=== PATIENT | male | born 1985 | race Caucasian/White ===

== ENCOUNTER 2018-10-12 23:20 | Emergency (ER) | payer OTHER ==
[2018-10-13] MEDS ORDERED: Morphine 4 MG/ML VIAL (1 ml) 4 MG/ML VIAL IV ONE (02:20)
[2018-10-13] MEDS ORDERED: NS 0.9% 1000 ML** 1,000 ML IV ONE (02:22)
[2018-10-13] MEDS ORDERED: Metoclopramide IV* 5 MG/ML 2 ML VIAL IV SLOW PU ONE (02:22)
[2018-10-13 02:41] LABS: ABS Eosinophils 0.2 10^3/ul (0-0.6); ABS Monocytes 0.5 10^3/ul (0-0.8); Eosinophil % 2.2 %; Hematocrit 35 % (42-52); Hemoglobin 11.8 g/dL (14.0-18.0); Lymphocyte % 23.2 %; Mean Corpuscular HGB Conc 34 g/dL (31-36); Mean Corpuscular Hemoglobin 27 pg (27-31); Mean Corpuscular Volume 79 fL (80-94); Mean Platelet Volume 8.1 fL (7.4-10.4); Nucleated Red Blood Cells % 0.1; Platelet Count 202 10^3/uL (150-450); Red Blood Count 4.42 10^6 /uL (4.18-5.48); Red Cell Distribution Width 17 % (10-15); White Blood Count 8.8 10^3/uL (3.5-10.8)
[2018-10-13 02:48] LABS: Activated Partial Thrombo Time 30.9 seconds (26.0-38.0); INR 0.99 (0.82-1.09)
[2018-10-13 02:58] LABS: Albumin 4.5 g/dL (3.2-5.2); Albumin/Globulin Ratio 1.6 (1-3); BUN/Creatinine Ratio 17.4 (8-20); C Reactive Protein 4.22 mg/L (<8.01); Calcium 9.3 mg/dL (8.6-10.3); EGFR African American 123.2 (>60); EGFR Non-African American 101.8 (>60); Globulin 2.8 g/dL (2-4); Potassium 4.1 mmol/L (3.5-5.0); Total Bilirubin 0.6 mg/dL (0.2-1.0); Total Protein 7.3 g/dL (6.4-8.9)
[2018-10-13] MEDS ORDERED: Iohexol 300* (CONTRAST) 10 ML SDV IV ONE (03:23)
[2018-10-13 05:18] LABS: Urine Appearance Clear; Urine Bacteria 2+ (Absent); Urine Bilirubin Negative (Negative); Urine Blood Negative (Negative); Urine Color Yellow; Urine Glucose Negative (Negative); Urine Ketones Negative (Negative); Urine Nitrite Positive (Negative); Urine Protein Negative (Negative); Urine Red Blood Cell Trace(0-2/hpf) (Absent); Urine Specific Gravity 1.057 (1.010-1.030); Urine Squamous Epithelial Cell Present (Absent); Urine Urobilinogen Negative (Negative); Urine White Blood Cell 1+(6-10/hpf) (Absent)
[2018-10-13] MEDS ORDERED: Levofloxacin TAB* 500 MG PO ONE (05:39)
--- NOTE | 2018-10-13 06:26 | ED ---
Abdominal Pain/Male - HPI Summary HPI Summary: This patient is a 33 year old M presenting to [facility] with a chief complaint of constant lower ABD pain since 2 days ago. Pt denies hx of ABD surgeries. He notes that his last BM was today and had a medium amount of blood. The patient rates the pain 7/10 in severity. Symptoms aggravated by nothing. Symptoms alleviated by nothing. - History of Current Complaint Chief Complaint: EDAbdPain Stated Complaint: ABD PAINS PER PT Time Seen by Provider: 10/13/18 02:08 Hx Obtained From: Patient Onset/Duration: Sudden Onset, Lasting Days - 2 Timing: Constant, Lasting Days - 2 Severity Currently: Severe Pain Intensity: 7 Pain Scale Used: 0-10 Numeric Location: Other - lower ABD Radiates: No Aggravating Factor(s): Nothing Alleviating Factor(s): Nothing Associated Signs And Symptoms: Positive: Blood in Stool, Other - lower ABD pain - Allergies/Home Medications Allergies/Adverse Reactions: Allergies Allergy/AdvReac Type Severity Reaction Status Date / Time No Known Allergies Allergy Verified 10/12/18 23:25 Home Medications: Home Medications Cyclobenzaprine TAB* [Flexeril 10 MG TAB*] 10 mg PO BID PRN 10/13/18 [History Confirmed 10/13/18] Gabapentin CAP(*) [Neurontin 300 CAP(*)] 300 mg PO TID 10/13/18 [History Confirmed 10/13/18] PMH/Surg Hx/FS Hx/Imm Hx Previously Healthy: No Endocrine/Hematology History: Denies: Hx Diabetes Cardiovascular History: Denies: Hx Hypertension History: Denies: Hx Renal Disease EENT History: Denies: Hx Deafness - Surgical History Surgical History: Unable to Obtain/Confirm - Immunization History Immunizations Up to Date: Yes Infectious Disease History: No Infectious Disease History: Denies: Traveled Outside the US in Last 30 Days - Family History Known Family History: Positive: None - Social History Alcohol Use: Weekly Hx Substance Use: Yes Substance Use Type: Reports: Marijuana Hx Tobacco Use: Yes Smoking Status (MU): Heavy Every Day Tobacco Smoker Review of Systems Negative: Fever Gastrointestinal: Other - positive - bloody stool Positive: Abdominal Pain - lower All Other Systems Reviewed And Are Negative: Yes Physical Exam - Summary Physical Exam Summary: VITAL SIGNS: Reviewed. GENERAL: Patient is a well-developed and nourished MALE who is lying comfortable in the stretcher. Patient is not in any acute respiratory distress. HEAD AND FACE: No signs of trauma. No ecchymosis, hematomas or skull depressions. No sinus tenderness. EYES: PERRLA, EOMI x 2, No injected conjunctiva, no nystagmus. EARS: Hearing grossly intact. Ear canals and tympanic membranes are within normal limits. MOUTH: Oropharynx within normal limits. NECK: Supple, trachea is midline, no adenopathy, no JVD, no carotid bruit, no c- spine tenderness, neck with full ROM CHEST: Symmetric, no tenderness at palpation LUNGS: Clear to auscultation bilaterally. No wheezing or crackles. CVS: Regular rate and rhythm, S1 and S2 present, no murmurs or gallops appreciated. ABDOMEN: Soft, Diffuse ABD tenderness. No signs of distention. No rebound no guarding, and no masses palpated. Bowel sounds are normal. EXTREMITIES: Right BKA , FROM in all major joints, no edema, no cyanosis or clubbing. NEURO: Alert and oriented x 3. No acute neurological deficits. Speech is normal and follows commands. SKIN: Dry and warm Triage Information Reviewed: Yes Vital Signs On Initial Exam: Initial Vitals Temp Pulse Resp BP Pulse Ox 98.5 F 104 16 152/85 98 10/12/18 23:22 10/12/18 23:22 10/12/18 23:22 10/12/18 23:22 10/12/18 23:22 Vital Signs Reviewed: Yes Diagnostics - Vital Signs Vital Signs Temp Pulse Resp BP Pulse Ox 10/13/18 03:17 16 10/13/18 03:00 79 97 10/13/18 02:49 80 141/70 98 10/13/18 02:21 73 98 10/13/18 02:19 77 136/83 99 10/13/18 01:42 97.8 F 77 22 146/71 97 10/12/18 23:22 98.5 F 104 16 152/85 98 - Laboratory Lab Results: Lab Results 10/13/18 10/13/18 10/13/18 Range/Units 02:34 02:34 02:34 WBC 8.8 (3.5-10.8) 10^3/uL RBC 4.42 (4.18-5.48) 10^6 /uL Hgb 11.8 L (14.0-18.0) g/dL Hct 35 L (42-52) % MCV 79 L (80-94) fL MCH 27 (27-31) pg MCHC 34 (31-36) g/dL RDW 17 H (10-15) % Plt Count 202 (150-450) 10^3/uL MPV 8.1 (7.4-10.4) fL Neut % (Auto) 68.3 % Lymph % (Auto) 23.2 % Bertie % (Auto) 6.0 % Eos % (Auto) 2.2 % Baso % (Auto) 0.3 % Absolute Neuts (auto) 6.0 (1.5-7.7) 10^3/ul Absolute Lymphs (auto) 2.0 (1.0-4.8) 10^3/ul Absolute Monos (auto) 0.5 (0-0.8) 10^3/ul Absolute Eos (auto) 0.2 (0-0.6) 10^3/ul Absolute Basos (auto) 0.0 (0-0.2) 10^3/ul Absolute Nucleated RBC 0.0 10^3/ul Nucleated RBC % 0.1 INR (Anticoag Therapy) 0.99 (0.82-1.09) APTT 30.9 (26.0-38.0) seconds Sodium 136 (135-145) mmol/L Potassium 4.1 (3.5-5.0) mmol/L Chloride 106 (101-111) mmol/L Carbon Dioxide 23 (22-32) mmol/L Anion Gap 7 (2-11) mmol/L BUN 15 (6-24) mg/dL Creatinine 0.86 (0.67-1.17) mg/dL Est GFR ( Amer) 123.2 (>60) Est GFR (Non-Af Amer) 101.8 (>60) BUN/Creatinine Ratio 17.4 (8-20) Glucose 95 (70-100) mg/dL Calcium 9.3 (8.6-10.3) mg/dL Total Bilirubin 0.60 (0.2-1.0) mg/dL AST 24 (13-39) U/L ALT 26 (7-52) U/L Alkaline Phosphatase 68 (34-104) U/L C-Reactive Protein 4.22 (<8.01) mg/L Total Protein 7.3 (6.4-8.9) g/dL Albumin 4.5 (3.2-5.2) g/dL Globulin 2.8 (2-4) g/dL Albumin/Globulin Ratio 1.6 (1-3) Amylase 28 L (29-103) U/L Lipase 20 (11.0-82.0) U/L Urine Color Urine Appearance Urine pH (5-9) Ur Specific Clayton (1.010-1.030) Urine Protein (Negative) Urine Ketones (Negative) Urine Blood (Negative) Urine Nitrate (Negative) Urine Bilirubin (Negative) Urine Urobilinogen (Negative) Ur Leukocyte Esterase (Negative) Urine WBC (Auto) (Absent) Urine RBC (Auto) (Absent) Ur Squamous Epith Cells (Absent) Urine Bacteria (Absent) Urine Glucose (Negative) 10/13/18 Range/Units 05:00 WBC (3.5-10.8) 10^3/uL RBC (4.18-5.48) 10^6 /uL Hgb (14.0-18.0) g/dL Hct (42-52) % MCV (80-94) fL MCH (27-31) pg MCHC (31-36) g/dL RDW (10-15) % Plt Count (150-450) 10^3/uL MPV (7.4-10.4) fL Neut % (Auto) % Lymph % (Auto) % Bertie % (Auto) % Eos % (Auto) % Baso % (Auto) % Absolute Neuts (auto) (1.5-7.7) 10^3/ul Absolute Lymphs (auto) (1.0-4.8) 10^3/ul Absolute Monos (auto) (0-0.8) 10^3/ul Absolute Eos (auto) (0-0.6) 10^3/ul Absolute Basos (auto) (0-0.2) 10^3/ul Absolute Nucleated RBC 10^3/ul Nucleated RBC % INR (Anticoag Therapy) (0.82-1.09) APTT (26.0-38.0) seconds Sodium (135-145) mmol/L Potassium (3.5-5.0) mmol/L Chloride (101-111) mmol/L Carbon Dioxide (22-32) mmol/L Anion Gap (2-11) mmol/L BUN (6-24) mg/dL Creatinine (0.67-1.17) mg/dL Est GFR ( Amer) (>60) Est GFR (Non-Af Amer) (>60) BUN/Creatinine Ratio (8-20) Glucose (70-100) mg/dL Calcium (8.6-10.3) mg/dL Total Bilirubin (0.2-1.0) mg/dL AST (13-39) U/L ALT (7-52) U/L Alkaline Phosphatase (34-104) U/L C-Reactive Protein (<8.01) mg/L Total Protein (6.4-8.9) g/dL Albumin (3.2-5.2) g/dL Globulin (2-4) g/dL Albumin/Globulin Ratio (1-3) Amylase (29-103) U/L Lipase (11.0-82.0) U/L Urine Color Yellow Urine Appearance Clear Urine pH 5.0 (5-9) Ur Specific Clayton 1.057 H (1.010-1.030) Urine Protein Negative (Negative) Urine Ketones Negative (Negative) Urine Blood Negative (Negative) Urine Nitrate Positive A (Negative) Urine Bilirubin Negative (Negative) Urine Urobilinogen Negative (Negative) Ur Leukocyte Esterase Trace A (Negative) Urine WBC (Auto) 1+(6-10/hpf) A (Absent) Urine RBC (Auto) Trace(0-2/hpf) (Absent) Ur Squamous Epith Cells Present A (Absent) Urine Bacteria 2+ A (Absent) Urine Glucose Negative (Negative) Result Diagrams: 10/13/18 02:34 10/13/18 02:34 Lab Statement: Any lab studies that have been ordered have been reviewed, and results considered in the medical decision making process. - CT Abd/Pel CT Interpretation Completed By: Radiologist Summary of CT Findings: IMPRESSION: 1. No acute findings in the abdomen or pelvis. 2. Hepatomegaly. These findings were reviewed by Dr. Kuhn. Abdominal Pain Male Course/Dx - Course Course Of Treatment: This patient is a 33 year old M presenting to [facility] with a chief complaint of constant lower ABD pain since 2 days ago. Pt denies hx of ABD surgeries. He notes that his last BM was today and had a medium amount of blood. The patient rates the pain 7/10 in severity. Symptoms aggravated by nothing. Symptoms alleviated by nothing. Physical exam shows diffuse ABD tenderness and right BKA. Lab results show Hgb 11.8, Hct 35, MCV 79, RDW 17, amylase 28, Ur specific gravity 1.057, urine nitrate positive A, Ur leukocyte esterase trace A, urine WBC 1+ A, Ur squamous epith cells present A, urine bacteria 2+ A. Abd/Pel CT IMPRESSION: 1. No acute findings in the abdomen or pelvis. 2. Hepatomegaly. During ED course, pt was given Levaquin, Reglan, morphine, and fluids. Dx is UTI. Pt is agreeable to discharge. Pt was told to follow up with his primary care provider within 1-2 days and to return to ED for any new or worsening symptoms. - Diagnoses Provider Diagnoses: UTI (urinary tract infection) Discharge - Sign-Out/Discharge Documenting (check all that apply): Patient Departure - discharge Patient Received Moderate/Deep Sedation with Procedure: No - Discharge Plan Condition: Stable Disposition: HOME Prescriptions: Levofloxacin TAB* [Levaquin TAB*] 500 mg PO DAILY #7 tab Patient Education Materials: Urinary Tract Infection in Men (ED) Referrals: Mundo Alston PROPELLER LAYOUT WORKER [Primary Care Provider] - 1 Day Additional Instructions: Follow up with your primary care provider within 1-2 days. Return to ED for any new or worsening symptoms. - Attestation Statements Document Initiated by Scribe: Yes Documenting Scribe: Trevor Contreras Provider For Whom Scribe is Documenting (Include Credential): Dr. Des Kuhn MD Scribe Attestation: I, Trevor Contreras, scribed for Dr. Dse Kuhn MD on 10/13/18 at 0710. Status of Scribe Document: Ready
[2018-10-13 06:44] VITALS: BP 127/66
--- NOTE | 2018-10-15 06:07 | PN ---
Progress Note - Progress Note Date of Service: 10/15/18 Note: The patient's preliminary urine culture grew Klebsiella greater than 100,000. Patient was placed on Levaquin. Will wait for final culture for sensitivity.
== END 2018-10-13 06:26 | disposition home or self-care (01) ==
LOC: ED 23:20
DX: N39.0 Urinary tract infection, site not specified (principal); K92.1 Melena; R16.0 Hepatomegaly, not elsewhere classified; F17.200 Nicotine dependence, unspecified, uncomplicated
CPT/HCPCS: 36415; 74177; 80053; 81003; 81015; 82150; 83690; 85025; 85610; 85730; 86140; 87077; 87086; 87186; 96361; 96374; 96375; 99284; J2270; J2765; Q9967

== ENCOUNTER 2018-12-10 16:57 | Emergency (ER) | payer OTHER ==
[2018-12-10] MEDS ORDERED: Cyclobenzaprine TAB* 10 MG PO ONE ×2 (18:12→20:26)
--- NOTE | 2018-12-10 18:18 | UC ---
Back Pain HPI - HPI Summary HPI Summary: 33-year-old male comes in with a chief complaint of low back pain. Patient has a history of spinal fusion after a fall years ago. 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 Patient has an orthopedist in [place] and also in [place]. Patient reports falling about a week ago hurting his left hip and pelvis. About 2 days ago he slipped and fell backwards increasing his low back pain from his normal back pain too much worse. This morning when he woke up his left leg felt weaker than usual. Once he was up and moving around and returned back to normal. No problems controlling urine. He has been having difficulty having a bowel movement as when he sits down to have a bowel movement and pushes the back pain increases. No loss of stool. At this time in clinic there is no weakness or numbness. - History of Current Complaint Chief Complaint: UCBackPain Stated Complaint: hip and back injury Time Seen by Provider: 12/10/18 18:03 Pain Intensity: 8 - Allergies/Home Medications Allergies/Adverse Reactions: Allergies Allergy/AdvReac Type Severity Reaction Status Date / Time No Known Allergies Allergy Verified 12/10/18 17:28 Home Medications: Home Medications Acetaminophen 1,000 mg PO ONCE PRN 12/10/18 [History Confirmed 12/10/18] Ibuprofen 800 mg PO ONCE PRN 12/10/18 [History Confirmed 12/10/18] PMH/Surg Hx/FS Hx/Imm Hx Previously Healthy: Yes - Surgical History Surgical History: Yes Surgery Procedure, Year, and Place: back surgery. right leg amputation - Family History Known Family History: Positive: None - Social History Alcohol Use: Weekly Alcohol Amount: pt denies Substance Use Type: Marijuana Substance Use Comment - Amount & Last Used: pt states he hasn't in a while Smoking Status (MU): Heavy Every Day Tobacco Smoker Type: Cigarettes Amount Used/How Often: 1 ppd Household Exposure Type: Cigarettes Review of Systems All Other Systems Reviewed And Are Negative: Yes Constitutional: Positive: Negative Skin: Positive: Negative Eyes: Positive: Negative ENT: Positive: Negative Respiratory: Positive: Negative Cardiovascular: Positive: Negative Gastrointestinal: Positive: Negative Genitourinary: Positive: Negative Motor: Positive: Other - see hpi Neurovascular: Positive: Decreased Pulses - see hpi Musculoskeletal: Positive: Other: - see hpi Neurological: Positive: Other - see hpi Psychological: Positive: Negative Is Patient Immunocompromised?: No Physical Exam Triage Information Reviewed: Yes Appearance: Well-Appearing, Well-Nourished, Pain Distress - mild with rom Vital Signs: Initial Vital Signs Temp 98.3 F 12/10/18 17:23 Pulse 79 12/10/18 17:23 Resp 18 12/10/18 17:23 BP 147/85 12/10/18 17:23 Pulse Ox 99 12/10/18 17:23 Vital Signs Reviewed: Yes Eye Exam: Normal Eyes: Positive: Conjunctiva Clear Neck: Positive: Supple Respiratory: Positive: No respiratory distress Musculoskeletal: Positive: Other: - Right BKA. Tender to palpation the mid lumbar spine. There is a surgical scar that's intact midline lumbar spine. Left like has full range of motion full-strength normal sensation normal capillary refill. Patellar reflex is 1+ on the left. Patient has increased low back pain with left hip flexion. Neurological: Positive: Alert Psychological: Positive: Normal Response To Family, Age Appropriate Behavior Skin Exam: Normal Back Pain Course/Dx - Course Course Of Treatment: I reviewed the pelvis and lumbar x-rays with the patient and his partner. I do not see any acute fracture radiologist reading is pending. Plan is to treat with Flexeril and ibuprofen. Patient has an orthopedist in [place] who I recommended he follow up with. Also let the patient know if he gets any neurologic deficits such as weakness numbness difficulty controlling urine or bowels are has excessive pain he needs to get reevaluated again right away. I let him know that if the neurologic deficit persists for a length of time he could have permanent injury to nerves is the reason why he needs to seek reevaluation right away if he does have any problems. - Differential Dx/Diagnosis Provider Diagnosis: Low back pain, Left lumbar radiculopathy Discharge ED - Sign-Out/Discharge Documenting (check all that apply): Patient Departure All imaging exams completed and their final reports reviewed: No - Discharge Plan Condition: Stable Disposition: HOME Prescriptions: Cyclobenzaprine TAB* [Flexeril 10 MG TAB*] 10 mg PO TID PRN #15 tab PRN Reason: Pain - Moderate Patient Education Materials: Acute Low Back Pain (ED), Lumbar Radiculopathy (ED ) Referrals: Mundo Alston DYE FEEDER [Primary Care Provider] - Additional Instructions: FOLLOW UP WITH YOUR ORTHOPEDIST. GO TO THE EMERGENCY DEPARTMENT IF YOUR CONDITION WORSENS; WEAKNESS, NUMBNESS, DIFFICULTY CONTROLLING BOWEL OR BLADDER, YOU FEEL ILL OR ANY QUESTIONS OR CONCERNS. - Billing Disposition and Condition Condition: STABLE Disposition: Home
[2018-12-10 20:22] VITALS: BP 169/100
--- NOTE | 2018-12-11 07:33 | UC ---
- Progress Note Progress Note: Reviewed Dr. Cisneros's reports of lumbar, hip and pelvic xrays. No change in interpretation. Course/Dx - Diagnoses Provider Diagnoses: Low back pain, Left lumbar radiculopathy Discharge ED - Sign-Out/Discharge Documenting (check all that apply): Patient Departure All imaging exams completed and their final reports reviewed: Yes - Discharge Plan Condition: Stable Disposition: HOME Prescriptions: Cyclobenzaprine TAB* [Flexeril 10 MG TAB*] 10 mg PO TID PRN #15 tab PRN Reason: Pain - Moderate Patient Education Materials: Acute Low Back Pain (ED), Lumbar Radiculopathy (ED ) Referrals: Mundo Alston SENIOR DATA SCIENTIST [Primary Care Provider] - Additional Instructions: FOLLOW UP WITH YOUR ORTHOPEDIST. GO TO THE EMERGENCY DEPARTMENT IF YOUR CONDITION WORSENS; WEAKNESS, NUMBNESS, DIFFICULTY CONTROLLING BOWEL OR BLADDER, YOU FEEL ILL OR ANY QUESTIONS OR CONCERNS. - Billing Disposition and Condition Condition: STABLE Disposition: Home
== END 2018-12-10 20:39 | disposition home or self-care (01) ==
LOC: UCEAST 16:57
DX: M54.16 Radiculopathy, lumbar region (principal); F17.210 Nicotine dependence, cigarettes, uncomplicated
CPT/HCPCS: 72110; 72170; 99212; A9270-GY; G0463

== ENCOUNTER 2018-12-13 19:24 | Emergency (ER) | payer OTHER ==
--- NOTE | 2018-12-13 19:45 | ED ---
Complex/Multi-Sys Presentation - HPI Summary HPI Summary: 33 year old M brought in by EMS to [facility] complains of back pain radiating to his hips x1 week after tripping and falling last week. Patient reports bilateral leg heaviness. Patient additionally complains of urinary incontinence , dysuria ("feels like there is a nail in my crotch"), and painful bowel movements ("feels like someone is shoving a screwdriver out my back") since yesterday 12/12/18 AM. The patient rates the pain 8/10 in severity. Symptoms aggravated by movement and sitting up. Symptoms alleviated by nothing. Patient states he went to [facility] on Thursday12/11/18 where he had x-rays done and was discharged to follow up with a specialist but patient states he has not yet established an appointment yet with the specialist. Patient states he has fusions in his back done in 2009 in [place], [place]. - History Of Current Complaint Chief Complaint: EDBackInjuryPain Time Seen by Provider: 12/13/18 19:26 Hx Obtained From: Patient Onset/Duration: Lasting Days - 1, Lasting Weeks - 1, Still Present Timing: Constant Severity Currently: Moderate Aggravating Factor(s): Nothing Alleviating Factor(s): Nothing - Allergies/Home Medications Allergies/Adverse Reactions: Allergies Allergy/AdvReac Type Severity Reaction Status Date / Time No Known Allergies Allergy Verified 12/10/18 17:28 PMH/Surg Hx/FS Hx/Imm Hx Endocrine/Hematology History: Denies: Hx Diabetes Cardiovascular History: Denies: Hx Hypertension History: Denies: Hx Renal Disease Sensory History: Denies: Hx Deafness - Surgical History Surgery Procedure, Year, and Place: back surgery. right leg amputation Infectious Disease History: No Infectious Disease History: Denies: Traveled Outside the [place] in Last 30 Days - Family History Known Family History: Positive: Cardiac Disease, Diabetes, Other - cancer - Social History Alcohol Use: Weekly Alcohol Amount: pt denies Hx Substance Use: Yes Substance Use Type: Reports: Marijuana Substance Use Comment - Amount & Last Used: pt states he hasn't in a while Hx Tobacco Use: Yes Smoking Status (MU): Heavy Every Day Tobacco Smoker Type: Cigarettes Amount Used/How Often: 1 ppd Review of Systems Positive: Other - painful bowel movements Positive: dysuria, incontinence Positive: Other - back pain radiating to his hips Neurological: Other - bilateral leg heaviness All Other Systems Reviewed And Are Negative: Yes Physical Exam - Summary Physical Exam Summary: Appearance: The patient is well-nourished in no acute distress and in no acute pain. Skin: The skin is warm and dry, and skin color reflects adequate perfusion. HEENT: The head is normocephalic and atraumatic. The pupils are equal and reactive. The conjunctivae are clear and without drainage. Nares are patent and without drainage. Mouth reveals moist mucous membranes, and the throat is without erythema and exudate. The external ears are intact. The ear canals are patent and without drainage. The tympanic membranes are intact. Neck: The neck is supple with full range of motion and non-tender. There are no carotid bruits. There is no neck vein distension. Respiratory: Chest is non-tender. Lungs are clear to auscultation and breath sounds are symmetrical and equal. Cardiovascular: Heart is regular rate and rhythm. There is no murmur or rub auscultated. There is no peripheral edema and pulses are symmetrical and equal. Abdomen: The abdomen is soft and non-tender. There are normal bowel sounds heard in all four quadrants and there is no organomegaly palpated. Musculoskeletal: There is no back tenderness noted. Extremities are non-tender with full range of motion. There is good capillary refill. There is no peripheral edema or calf tenderness elicited. Neurological: Patient is alert and oriented to person, place and time. The patient has symmetrical motor strength in all four extremities. Cranial nerves are grossly intact. Deep tendon reflexes are symmetrical and equal in all four extremities. Psychiatric: The patient has an appropriate affect and does not exhibit any anxiety or depression. Triage Information Reviewed: Yes Vital Signs On Initial Exam: Initial Vitals Temp Pulse Resp BP Pulse Ox 98.4 F 78 18 152/89 98 12/13/18 19:28 12/13/18 19:28 12/13/18 19:28 12/13/18 19:28 12/13/18 19:28 Vital Signs Reviewed: Yes Diagnostics - Vital Signs Vital Signs Temp Pulse Resp BP Pulse Ox 12/13/18 19:28 98.4 F 78 18 152/89 98 - Laboratory Lab Statement: Any lab studies that have been ordered have been reviewed, and results considered in the medical decision making process. Complex Multi-Symp Course/Dx Course Of Treatment: Mr. Hsieh has remote history of surgery on his low back. I feel he fell twisting and landing on his hip. Since that time he said increased pain in his back. Today his legs felt like he was walking through water and he was incontinent once. An MRI scan is been ordered. - Diagnoses Provider Diagnoses: Injury of low back Discharge ED - Sign-Out/Discharge Documenting (check all that apply): Sign-Out Patient Signing out patient TO: Frank Clemons - awaiting MRI Receiving patient FROM: Frank Sharpe - Discharge Plan Condition: Stable Referrals: Mundo Alston OIL WELL LOGGING ENGINEER [Primary Care Provider] - - Billing Disposition and Condition Condition: STABLE - Attestation Statements Document Initiated by Scribe: Yes Documenting Scribe: Bozena Alvarez Provider For Whom Varghese is Documenting (Include Credential): Frank Sharpe MD Scribe Attestation: Bozena Mcdowell, scribed for Frank Sharpe MD on 12/13/18 at 2124. Scribe Documentation Reviewed: Yes Provider Attestation: The documentation as recorded by the Bozena muhammad accurately reflects the service I personally performed and the decisions made by me, Frank Sharpe MD Status of Scribe Document: Viewed
[2018-12-13 21:24] LABS: Urine Appearance Cloudy; Urine Bilirubin Negative (Negative); Urine Blood Negative (Negative); Urine Color Yellow; Urine Glucose Negative (Negative); Urine Ketones Negative (Negative); Urine Nitrite Negative (Negative); Urine Protein Negative (Negative); Urine Specific Gravity 1.008 (1.010-1.030); Urine Urobilinogen Negative (Negative)
--- NOTE | 2018-12-14 00:45 | ED ---
Progress - Progress Note Progress Note: Patient is received as a sign out from Dr. Sharpe to Dr. Clemons at 2200 12/13/18 shift change pending results of MRI. LUMBAR SPINE MRI IMPRESSION: 1. Examination is significantly limited secondary to artifact arising from spinal fusion hardware. No gross acute abnormality. 2. Borderline central canal stenosis at L4-L5. No high-grade central canal stenosis throughout. 3. Additional degenerative findings as above. THIS REPORT WAS REVIEWED BY DR. CLEMONS. 34 - MRI was discussed with patient, he was discharged to home with PCP follow up. Re-Evaluation - Re-Evaluation First Eval Re-Evaluation Time: 00:35 Comment: 34 - MRI was discussed with patient, he was discharged to home with PCP follow up. Course/Dx - Course Course Of Treatment: Patient is received as a sign out from Dr. Sharpe to Dr. Clemons at 2200 12/13/18 shift change pending results of MRI. LUMBAR SPINE MRI IMPRESSION: 1. Examination is significantly limited secondary to artifact arising from. spinal fusion hardware. No gross acute abnormality. 2. Borderline central canal stenosis at L4-L5. No high-grade central canal. stenosis throughout. 3. Additional degenerative findings as above. THIS REPORT WAS REVIEWED BY DR. CLEMONS. 34 - MRI was discussed with patient, he was discharged to home with PCP follow up. - Diagnoses Provider Diagnoses: Lower back pain Discharge ED - Sign-Out/Discharge Documenting (check all that apply): Patient Departure - DISCHARGE Patient Received Moderate/Deep Sedation with Procedure: No - Discharge Plan Condition: Stable Disposition: HOME Prescriptions: oxyCODONE/Acetamin 5/325 MG* [Percocet 5/325 TAB*] 1 tab PO Q4H PRN #12 tab MDD 5 PRN Reason: Pain - Severe Patient Education Materials: Back Pain (ED) Print Language: AMHARIC Referrals: Dora Dominguez MD [Medical Doctor] - As Soon As Possible Additional Instructions: The MRI we did tonight did not show any sign of acute neurologic injury to the spinal cord or nerve roots, so it is safe to treat you conservatively with pain control for now. - Billing Disposition and Condition Condition: STABLE Disposition: Home - Attestation Statements Document Initiated by Scribe: Yes Documenting Scribe: LUANNE PITTMAN Provider For Whom Scribe is Documenting (Include Credential): SONNY CLEMONS MD Scribe Attestation: LUANNE Mcdowell, scribed for SONNY CLEMONS MD on 12/18/18 at 0548. Scribe Documentation Reviewed: Yes Provider Attestation: The documentation as recorded by the [email or web address] accurately reflects the service I personally performed and the decisions made by me, SONNY CLEMONS MD Status of Scribe Document: Viewed
[2018-12-14 01:01] VITALS: BP 128/81
== END 2018-12-14 01:00 | disposition home or self-care (01) ==
LOC: ED 19:24
DX: S39.92XA Unspecified injury of lower back, initial encounter (principal); M54.5 Low back pain; R30.0 Dysuria; F17.210 Nicotine dependence, cigarettes, uncomplicated; W01.0XXA Fall on same level from slipping, tripping and stumbling without subsequent striking against object, initial encounter; Y92.9 Unspecified place or not applicable
CPT/HCPCS: 70030; 72148; 81003; 99282

== ENCOUNTER 2019-01-02 11:34 | Emergency (ER) | payer OTHER ==
[2019-01-02 11:36] VITALS: BP 155/87
--- NOTE | 2019-01-02 11:44 | ED ---
HPI Chest Pain - HPI Summary HPI Summary: The patient is a 33 y/o M arriving by ambulance with a chief complaint of sudden onset diffuse chest pain this morning. He reports that he was not exerting himself at onset, but he was stressed due to personal traveling issues hes dealing with. The pain does not radiate, but is rated 5/10 in severity. He additionally c/o nausea without vomiting, dizziness, and productive cough with phlegm. He denies any fevers or chills. There are no aggravating or alleviating factors. EMS administered ASA but not NTG. They note some ST depressions in anterior leads on EKG en route. PMHx: HTN, BTK on right, back surgery. FHx: HTN , cardiac disease. Current smoker, no EtOH, no substance use. Medications reviewed. Allergies noted. - History of Current Complaint Chief Complaint: EDChestPainROMI Time Seen by Provider: 01/02/19 11:37 Hx Obtained From: Patient, EMS Onset/Duration: Started Minutes Ago, Still Present Timing: Lasting Minutes Initial Severity: Moderate Current Severity: Moderate Pain Intensity: 5 Pain Scale Used: 0-10 Numeric Chest Pain Location: Diffuse Chest Pain Radiates: No Character: Dull/Aching Aggravating Factor(s): Nothing Alleviating Factor(s): Nothing Associated Signs and Symptoms: Positive: Chest Pain, Dizziness, Nausea, Productive Cough. Negative: Fever, Vomiting - Allergy/Home Medications Allergies/Adverse Reactions: Allergies Allergy/AdvReac Type Severity Reaction Status Date / Time No Known Allergies Allergy Verified 01/02/19 11:37 Home Medications: Home Medications NK [No Home Medications Reported] 01/02/19 [History Confirmed 01/02/19] PMH/Surg Hx/FS Hx/Imm Hx Endocrine/Hematology History: Denies: Hx Diabetes Cardiovascular History: Reports: Hx Hypertension Denies: Hx Hypercholesterolemia, Hx Pacemaker/ICD Respiratory History: Denies: Hx Asthma History: Denies: Hx Renal Disease Sensory History: Denies: Hx Deafness, Hx Hearing Aid Psychiatric History: Denies: Hx Panic Disorder - Surgical History Surgical History: Yes Surgery Procedure, Year, and Place: back surgery. right leg amputation Infectious Disease History: No Infectious Disease History: Denies: Traveled Outside the [place] in Last 30 Days - Family History Known Family History: Positive: Cardiac Disease, Diabetes, Other - cancer - Social History Alcohol Use: Weekly Alcohol Amount: pt denies Hx Substance Use: Yes Substance Use Type: Reports: Marijuana Substance Use Comment - Amount & Last Used: pt states he hasn't in a while Hx Tobacco Use: Yes Smoking Status (MU): Heavy Every Day Tobacco Smoker Type: Cigarettes Amount Used/How Often: 1 ppd Review of Systems Negative: Fever, Chills Positive: Chest Pain - diffuse Positive: Cough - productive Positive: Nausea. Negative: Vomiting Neurological: Other - dizziness All Other Systems Reviewed And Are Negative: Yes Physical Exam - Summary Physical Exam Summary: VITAL SIGNS: Reviewed. GENERAL: Patient is a well-developed and nourished male who is lying comfortable in the stretcher. Patient is not in any acute respiratory distress. HEAD AND FACE: No signs of trauma. No ecchymosis, hematomas or skull depressions. No sinus tenderness. EYES: PERRLA, EOMI x 2, No injected conjunctiva, no nystagmus. EARS: Hearing grossly intact. Ear canals and tympanic membranes are within normal limits. MOUTH: Oropharynx within normal limits. NECK: Supple, trachea is midline, no adenopathy, no JVD, no carotid bruit, no c- spine tenderness, neck with full ROM. CHEST: Symmetric, no tenderness at palpation. LUNGS: Diffuse wheezing. No crackles. CVS: Regular rate and rhythm, S1 and S2 present, no murmurs or gallops appreciated. ABDOMEN: Soft, non-tender. No signs of distention. No rebound, no guarding, and no masses palpated. Bowel sounds are normal. EXTREMITIES: Below the knee amputation on the right. FROM in all major joints, no edema, no cyanosis or clubbing. NEURO: Alert and oriented x 3. No acute neurological deficits. Speech is normal and follows commands. SKIN: Dry and warm. Triage Information Reviewed: Yes Vital Signs On Initial Exam: Initial Vitals Temp Pulse Resp BP Pulse Ox 97.4 F 84 14 155/87 98 01/02/19 11:34 01/02/19 11:34 01/02/19 11:34 01/02/19 11:34 01/02/19 11:34 Vital Signs Reviewed: Yes Procedures - Sedation Patient Received Moderate/Deep Sedation with Procedure: No Diagnostics - Vital Signs Vital Signs Temp Pulse Resp BP Pulse Ox 01/02/19 11:34 97.4 F 84 14 155/87 98 - Laboratory Result Diagrams: 01/02/19 11:54 01/02/19 11:54 Lab Statement: Any lab studies that have been ordered have been reviewed, and results considered in the medical decision making process. - Radiology Chest X-Ray Radiology Interpretation Completed By: Radiologist Summary of Radiographic Findings: Impression: No evidence for active cardiopulmonary disease. ED physician has reviewed this report. - EKG 1136 Cardiac Rate: NL - 85 bpm EKG Rhythm: Sinus Rhythm Summary of EKG Findings: EKG at 1136 reveals NSR at [address] depressions in I , II, III, and aVF. Normal axis. ED physician has reviewed and interpreted this EKG. Re-Evaluation - Re-Evaluation First Eval Re-Evaluation Time: 14:05 Change: Unchanged Comment: Patient states he would like to leave AMA. We discussed all risks and benefits of leaving AMA, but declines further treatment. Chest Pain Course/Dx - Course Assessment/Plan: Patient is a 33 y/o M with chief complaint of sudden onset diffuse chest pain onset with stress accompanied by nausea without vomiting, dizziness, and productive cough with phlegm. ASA administered en route. Blood work within normal limits except for slight anemia, glucose 122, magnesium 1.6, total bilirubin 1.3, and troponin 0.01. Urinalysis negative for UTI. EKG shows a normal sinus rhythm without any ST elevation. The patient was given aspirin by EMS. I offered nitroglycerin however the patient declined. At this point, the patient reports that he wants to sign AGAINST MEDICAL ADVICE. I extensively discussed with the patient the benefits and risk of leaving AMA. I also discussed the alternatives to leaving AMA, however, the patient still insist to leave the hospital AMA. The patient is clinically sober, free from distracting injury, appears to have intact insight and judgment and reason and in my opinion has the capacity to make decisions. Patient has full capacity and is cognitively intact. The patient presents with CP, I have explained that I am concerned with these symptoms that may represent ACS and . The patient verbalizes understanding of my concerns. I have also explained the results of the labs and even though they are abnormal. The primary nurse and the charge nurse also strongly recommended that the patient should not leave AMA. Patient understands the risks of leaving AMA, which includes but is not restricted to . Patient signed the AMA form. Patient was also advised to return to ED if he changes his mind or if the symptoms worsen or other symptoms appear. Patient understands and agrees. Again, I discussed all the findings and test results with the patient. Patient was instructed to return to the emergency room immediately if any of the symptoms return or worsen. Plan of care was discussed with the patient and understands and agrees. All questions were answered at patient satisfaction. There were no further complaints or concerns. Patient signed AMA and he was discharged AMA. - Diagnoses Provider Diagnoses: Chest pain Discharge ED - Sign-Out/Discharge Documenting (check all that apply): Patient Departure - Patient would like to leave AMA. - Discharge Plan Condition: Stable Disposition: AGAINST MEDICAL ADVICE Referrals: Mundo Alston NP [Primary Care Provider] - - Billing Disposition and Condition Condition: STABLE Disposition: Against Medical Advice - Attestation Statements Document Initiated by Varghese: Yes Documenting Scribe: Tess Riley Provider For Whom Varghese is Documenting (Include Credential): Dr. Kevin Ernandez MD Scribe Attestation: Tess Mcdowell scribed for Dr. Kevin Ernandez MD on 01/02/19 at 1901. Scribe Documentation Reviewed: Yes Provider Attestation: The documentation as recorded by the Tess muhammad accurately reflects the service I personally performed and the decisions made by me, Dr. Kevin Ernandez MD Status of Scribe Document: Viewed
[2019-01-02 12:01] LABS: ABS Eosinophils 0.1 10^3/ul (0-0.6); ABS Lymphocytes 1.6 10^3/ul (1.0-4.8); ABS Monocytes 0.3 10^3/ul (0-0.8); ABS Neutrophils 4.2 10^3/ul (1.5-7.7); Eosinophil % 1.5 %; Hematocrit 40 % (42-52); Hemoglobin 13.4 g/dL (14.0-18.0); Lymphocyte % 25.6 %; Mean Corpuscular HGB Conc 34 g/dL (31-36); Mean Corpuscular Hemoglobin 27 pg (27-31); Mean Corpuscular Volume 79 fL (80-94); Mean Platelet Volume 8.3 fL (7.4-10.4); Platelet Count 206 10^3/uL (150-450); Red Blood Count 5.02 10^6 /uL (4.18-5.48); Red Cell Distribution Width 16 % (10-15); White Blood Count 6.2 10^3/uL (3.5-10.8)
[2019-01-02 12:17] LABS: Albumin 4.4 g/dL (3.2-5.2); Albumin/Globulin Ratio 1.8 (1-3); BUN/Creatinine Ratio 10.3 (8-20); Calcium 9.3 mg/dL (8.6-10.3); EGFR African American 137.9 (>60); EGFR Non-African American 113.9 (>60); Globulin 2.5 g/dL (2-4); Magnesium 1.6 mg/dL (1.9-2.7); Potassium 3.7 mmol/L (3.5-5.0); Total Bilirubin 1.3 mg/dL (0.2-1.0); Total Protein 6.9 g/dL (6.4-8.9)
[2019-01-02 12:21] LABS: Troponin I 0.01 ng/mL (<0.04)
--- OUTSIDE RECORDS SUMMARY | 2019-01-02 12:28 | XMS REPORT | Continuity of Care Document ---
:1985 Author Organization [facility] Care Team Providers Name Role Phone YASSINE CALVIN Admitting Physician YASSINE CALVIN Attending Physician Allergies and Intolerances No Known Allergies Medications RxNorm Medication Dose Route Instructions Start Date End Date Status Cyclobenzaprine Oral 10 mg oral orally 3 times Completed per day as needed. 83771 gabapentin 100 mg oral orally 3 times Completed per day as needed. Problems Code Code System Problem Name Start Date End Date Status 707033096 SNOMED-CT Operative procedure on spinal U Active structure 296343106967902 SNOMED-CT Right leg peripheral Active neuropathy [id number] SNOMED-CT Amputation of leg through U Active tibia and fibula Procedures No data in the system Results Laboratory Results Order: CBC DIFF Specimen Source: Body Site : Legend: (G,H) = High, (GG,HH,CH,#H) = Above High Threshold, (#,L) = Low, (##, CL,#L,LL) = Below Low Threshold, (C,CC,CA,#A,A) = Abnormal LOINC Test Result Flag Range Units Date 6690-2 1WBC # Bld Auto 8.1 4.8-10.8 K/uL 11/01/2018 01:11 42371-9 1RBC # Bld 4.30 L 4.60-6.20 M/uL 11/01/2018 01:11 718-7 1Hgb Bld-mCnc 11.8 L 13.5-18.0 gm/dL 11/01/2018 01:11 4544-3 1Hct VFr Bld Auto 34.6 L 41.0-53.0 % 11/01/2018 01:11 787-2 1MCV RBC Auto 80.4 80.0-100.0 fL 11/01/2018 01:11 48684-9 1MCHC RBC-mCnc 34.0 30.0-36.5 % 11/01/2018 01:11 51083-6 1MCH RBC Qn 27.3 27.0-34.0 pg 11/01/2018 01:11 19541-3 1RDW RBC 14.6 11.0-15.0 % 11/01/2018 01:11 777-3 1Platelet # Bld Auto 235 130-450 K/uL 11/01/2018 01:11 55934-8 1PMV Bld Auto 8.3 6.0-12.0 fL 11/01/2018 01:11 751-8 1Neutrophils # Bld Auto 59 37-80 % 11/01/2018 01:11 77766-0 1Lymphocytes NFr Bld 31 10-50 % 11/01/2018 01:11 5905-5 1Monocytes NFr Bld Auto 7 0-12 % 11/01/2018 01:11 01004-9 1Eosinophil # Bld 2 <=8 % 11/01/2018 01:11 704-7 1Basophils # Bld Auto 1 <=3 % 11/01/2018 01:11 81464-4 1Neutrophils # Bld 4.8 1.8-8.6 K/uL 11/01/2018 01:11 731-0 1Lymphocytes # Bld Auto 2.5 0.5-5.0 K/uL 11/01/2018 01:11 742-7 1Monocytes # Bld Auto 0.6 0.0-1.3 K/uL 11/01/2018 01:11 72888-8 1Eosinophil # Bld 0.2 0.0-0.9 K/uL 11/01/2018 01:11 704-7 1Basophils # Bld Auto 0.1 0.0-0.3 K/ul 11/01/2018 01:11 Performing Lab Footnotes:[facility] - [id number] - [address] [place] [address] NEREYDA LOVELLOMD1 Order: COMPREHENSIVE PANEL Specimen Source: Body Site: Legend: (G,H) = High, (GG,HH,CH,#H) = Above High Threshold, (#,L) = Low, (##,CL,#L,LL) = Below Low Threshold, (C,CC,CA,#A,A) = Abnormal LOINC Test Result Flag Range Units Date 2951-2 1Sodium SerPl-sCnc 137 136-145 mmol/L 11/01/2018 01:11 2823-3 1Potassium SerPl-sCnc 3.7 3.5-5.2 mmol/L 11/01/2018 01:11 5-0 1Chloride SerPl-sCnc 106 100-108 mmol/L 11/01/2018 01:11 8-9 1CO2 SerPl-sCnc 24 21-32 mmol/L 11/01/2018 01:11 2345-7 1Glucose SerPl-mCnc 81 70-100 mg/dL 11/01/2018 01:11 3094-0 1BUN SerPl-mCnc 14 7-21 mg/dL 11/01/2018 01:11 2160-0 1Creat SerPl-mCnc 0.8 0.6-1.3 mg/dL 11/01/2018 01:11 Interpretive Selam: 1Normal Kidney Function or Mild Disease - GFR >OR= 60 Chronic Kidney Disease - GFR 15-59 Renal Failure - GFR < 15 GFR not calculated on patients under 18 years of age. Calculated (estimated) GFR is based on the MDRD Study equation, which assumes a steady state for creatinine. Estimated GFR may not be appropriate for medication dosing. 82018-9 1Ca-I SerPl-mCnc 8.9 8.5-10.8 mg/dL 11/01/2018 01:11 95351-1 1GFR/BSA.pred SerPl-ArVRat >60 11/01/2018 01:11 08010-1 1Bilirub Bld-mCnc 0.7 0.0-1.2 mg/dL 11/01/2018 01:11 2885-2 1Prot SerPl-mCnc 7.1 6.4-8.2 gm/dL 11/01/2018 01:11 1751-7 1Albumin SerPl-mCnc 4.3 3.4-4.8 gm/dL 11/01/2018 01:11 6768-6 1ALP SerPl-cCnc 91 40-150 U/L 11/01/2018 01:11 1742-6 1ALT SerPl-cCnc 25 0-55 U/L 11/01/2018 01:11 1920-8 1AST SerPl-cCnc 24 5-37 U/L 11/01/2018 01:11 Performing Lab Footnotes:[facility] - [id number] - [address] [place] [address] NEREYDA WHITAKER Radiology Results Order: CT-LOWER EXTREM W/O CONTRAST RIGHTExam Completion Date:10/31/2018 23: 11:[address] RIGHT LOWER EXTREMITY WITHOUT CONTRAST CLINICAL INFORMATION: PAIN IN RIGHT LEG, 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 Assess for fluid collection/abscess. -- PAIN IN RIGHT LEG COMPARISON: Right knee radiographs 08/20/2018. PROCEDURE: Multidetector acquisition scanning was performed with thin cut contiguous axial tomographic sections through the right lower extremity (right knee) without administration of intravenous contrast. Coronal and sagittal MPR images were obtained. Automated exposure control, adjustment of the mA and/or kVaccording to patient size, and/or iterative reconstruction techniques were utilized for radiation dose optimization. FINDINGS/IMPRESSION: Motion artifact limits portions of this exam. There is noevidence of a an acute appearing bony fracture, dislocation or subluxation area of findings consistent with sequela below knee amputation are again noted, with heterotopic bone formation near the distal amputation margins, as seen on recent radiographs. No bony erosive or destructive changes are appreciated. A small to moderate-sized joint effusion is noted. There is heterogenous subcutaneous and interfascial edema in the distal soft tissues of the stump without an obvious fluid collection appreciated. There is mild osteopenia. END OF IMPRESSION [facility] submits Radiology results to [facility] and [facility] then provides those same results to [facility]. All results are available to [facility] and [facility] provider portal users. [facility] DICOM images are available to the [facility] provider portal users only. [facility] DICOM images are not available to the [facility] provider portal users. There is no current [facility] cross-[facility] functionality allowing images to be available through the [facility] to [facility] connectivity. Electronically signed By: Kassandra Mason M.D. Read By: KASSANDRA MANN Date: 11/01/2018 08:14 Social History Code Code System Social History Description Dates Observed Observation [id number] SNOMED CT Current Smoking Current some day Status smoker UNK AdministrativeGender Sex Assigned At Unknown Vital Signs Code Code System Vitals Value Date 8865-8 LOINC Pulse Rate 71 {beats}/min 11/01/2018 9279-1 LOINC Respiratory Rate 18 /min 11/01/2018 24336-0 LOINC O2% BldC Oximetry 98 % 11/01/2018 8480-6 LOINC BP Systolic 139 mm[Hg] 11/01/2018 8462-4 LOINC BP Diastolic 77 mm[Hg] 11/01/2018 8310-5 LOINC Body Temperature 97.6 [degF] 10/31/2018 8302-2 LOINC Height 71 [in_i] 10/31/2018 69991-9 LOINC Weight 83.91 kg 10/31/2018 3140-1 LOINC Body surface area Derived from formula 2.04 m2 10/31/2018 64497-6 LOINC BMI (Body Mass Index) 25.8 kg/m2 10/31/2018 Goals Section No data in the system Health Concerns No data in the systemEncounter Diagnosis Date Code Code System Diagnosis Status M25.461 ICD10 EFFUSION RIGHT KNEE Active Advance Directives PT STATES NO ADVANCE DIRECTIVES Directive Type Effective Date Education Dean Notes Supporting Document Name Address Phone No Directive Type 08/20/2018 Not Specified Not Specified Not Specified None No specified 10:36:00 PM Family History No data in the system Functional Status Code Functional Condition Code System Date Status Independent adls SNOMED CT 11/01/2018 Active Appears well nourished/hydrated SNOMED CT 11/01/2018 Active Immunizations No data in the system Medical Equipment No data in the system Mental Status Code Cognitive Condition Code System Date Status Perrl SNOMED CT 11/01/2018 Active Oriented x [address] 11/01/2018 Active No acute distress SNOMED CT 11/01/[address] 11/01/2018 Active Assessment and Plan Assessments No data in the systemPlan Of Treatment No data in the systemPending Tests No data in the system Hospital Discharge Instructions No data in the system Reason for Visit Reason for Visit Knee Pain RIGHT
--- OUTSIDE RECORDS SUMMARY | 2019-01-02 12:29 | XMS REPORT | Continuity of Care Document ---
:1985 External Reference #:[id number] Author Name Abby Marino M.D. Address [address] [place] [address], [address] [place] [address] Problems Description No Information Available Social History Type Date Description Comments Sex Unknown ETOH Use Drinks Alcoholic Beverages Occasionally Tobacco Use Start: Unknown Patient is a current smoker, smokes every day Recreational Drug Use Denies Drug Use Allergies, Adverse Reactions, Alerts Description No Known Drug Allergies Medications Active Medications SIG Qnty Indications Ordering Date Provider Cyclobenzaprine HCL 1 by mouth 60tabs S88.011A Abby Marino, 08/12/2018 10mg three times a M.D. Tablets day as needed pain Advil 2 by mouth Unknown 200mg Tablets three times per day with food x 1 month. Immunizations Description No Information Available Vital Signs Date Vital Result Comment 11/04/2018 10:57am Weight 165.00 lb Weight 74.844 kg BMI (Body Mass Index) 23.0 kg/m2 Heart Rate 64 /min Body Temperature 97.7 F Respiratory Rate 12 /min Height 71 inches 5'11" Height in cm's 180.3 cm O2 % BldC Oximetry 98 % 08/12/2018 10:28am Weight 165.00 lb Weight 74.844 kg BMI (Body Mass Index) 23.0 kg/m2 Heart Rate 78 /min Body Temperature 98.3 F Respiratory Rate 12 /min Pain Level 6 Height 71 inches 5'11" Height in cm's 180.3 cm O2 % BldC Oximetry 98 % Results Description No Information Available Procedures Description No Information Available Medical Devices Description No Information Available Encounters Type Date Location Provider Dx Diagnosis Office Visit 08/12/2018 [facility] Abby Marino S88.011A Complete 10:[facility]a [facility]. 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 right lower leg Plan of Treatment No Information Available Functional Status Description No Information Available Mental Status Description No Information Available Referrals Description No Information Available
[2019-01-02 12:32] LABS: TSH (Thyroid Stimulating Horm) 1.2 mcIU/mL (0.34-5.60)
[2019-01-02 12:52] LABS: Urine Appearance Cloudy; Urine Bacteria Absent (Absent); Urine Bilirubin Negative (Negative); Urine Blood Negative (Negative); Urine Color Amber; Urine Glucose Negative (Negative); Urine Ketones Negative (Negative); Urine Nitrite Negative (Negative); Urine Protein 1+(30 mg/dL) (Negative); Urine Red Blood Cell Trace(0-2/hpf) (Absent); Urine Specific Gravity 1.023 (1.010-1.030); Urine Squamous Epithelial Cell Present (Absent); Urine Urobilinogen Negative (Negative); Urine White Blood Cell Trace(0-5/hpf) (Absent)
== END 2019-01-02 14:11 | disposition left against medical advice (07) ==
LOC: ED 11:34
DX: R07.9 Chest pain, unspecified (principal); R42 Dizziness and giddiness; R11.0 Nausea; I10 Essential (primary) hypertension; F17.210 Nicotine dependence, cigarettes, uncomplicated
CPT/HCPCS: 36415; 71045; 80053; 81003; 81015; 82550; 82553; 83605; 83735; 83880; 84443; 84484; 85025; 87086; 93005; 99283